=== PATIENT | male | born 1955 | race Caucasian/White ===

== ENCOUNTER → 2021-02-09 13:49 | Outpatient (CLI) | payer MEDICARE, OTHER, SELFPAY ==
[2021-02-09 15:36] LABS: Mean Corp Hgb Conc 32.6 g/dL (32-36); Mean Corpuscular Hgb 28.1 pg (27.0-32.0); Mean Corpuscular Volume 86.3 fL (80-94); Mean Platelet Vol. 10.4 fl (6.2-12.0); Platelet Count 216 K/mm3 (150-450); RBC Distribution Width CV 13.9 % (11.6-14.6); Red Blood Count 5.33 M/mm3 (4.6-6.2); White Blood Count 4.5 K/mm3 (4.4-11.0)
[2021-02-09 16:08] LABS: Anion Gap 6 (5-15); BUN 20 mg/dL (7-18); BUN/Creat Ratio 22.2 RATIO (10-20); Calcium,Total 9.1 mg/dL (8.5-10.1); Chloride 105 mmol/L (98-107); EST Glomerular Filtration Rate 90 mL/min (>60); Est Glom Filt Rate - Afr Amer 109 mL/min (>60); Glucose 217 mg/dL (74-106); Potassium 4.2 mmol/L (3.5-5.1); Sodium Level 137 mmol/L (136-145)
== END ==
PROVIDERS: PCP Family Medicine; Visit Provider Physician Assistant
DX: Z01.812 Encounter for preprocedural laboratory examination (principal)
CPT/HCPCS: 36415; 80048; 85027